=== PATIENT | female | born 1965 | race Caucasian/White ===

== ENCOUNTER 2018-04-20 08:41 | Day surgery (SDC) | payer OTHER ==
[~2018-04-20] VITALS: Ht 165.1 cm; Wt 118.9 kg
[~2018-04-20 08:41] MED LIST: LEXAPRO10 MG PO; MOBIC7.5 MG PO; PRAVACHOL40 MG PO; XIGDUO XR 2.51 EACH PO
[2018-04-20 09:05] VITALS: BP 127/77
[2018-04-20 14:20] VITALS: BP 131/71
[2018-04-20 15:42] LABS: HEMATOCRIT 41.7 % (36.0-46.0); HEMOGLOBIN 13.1 G/DL (11.9-15.5); MCH 28.1 PG (29.0-34.0); MCHC 31.4 G/DL (30.0-36.0); MCV 89.3 FL (83-99); PLATELET COUNT 235 K/uL (156-360); RBC DIS.WIDTH-CV 13.1 % (11.8-14.6); RBC DIS.WIDTH-SD 42.9 % (39-53); RED BLOOD COUNT 4.67 M/uL (3.80-5.20); WHITE BLOOD COUNT 11.8 K/uL (4.1-10.2)
[2018-04-20 16:09] LABS: CHLORIDE 102 MEQ/L (99-109); CREATININE 0.7 MG/DL (0.6-1.3); GFR ESTIMATE (CALCULATED) > 59 mL/min/; GLUCOSE 164 mg/dL (70-99); POTASSIUM 3.7 MEQ/L (3.7-5.4); SODIUM 140 MEQ/L (136-147); UREA NITROGEN (BUN) 19 mg/dL (9-23)
[2018-04-20 19:37] VITALS: BP 159/67
[2018-04-21 00:13] VITALS: BP 107/55
[2018-04-21 04:30] VITALS: BP 116/61
[2018-04-21 05:55] LABS: HEMATOCRIT 37.4 % (36.0-46.0); HEMOGLOBIN 11.8 G/DL (11.9-15.5); MCH 28.1 PG (29.0-34.0); MCHC 31.6 G/DL (30.0-36.0); PLATELET COUNT 237 K/uL (156-360); RBC DIS.WIDTH-CV 13.1 % (11.8-14.6); RBC DIS.WIDTH-SD 42.6 % (39-53); WHITE BLOOD COUNT 9.9 K/uL (4.1-10.2)
[2018-04-21 06:16] LABS: CHLORIDE 105 MEQ/L (99-109); CREATININE 0.6 MG/DL (0.6-1.3); GFR ESTIMATE (CALCULATED) > 59 mL/min/; GLUCOSE 144 mg/dL (70-99); POTASSIUM 3.9 MEQ/L (3.7-5.4); SODIUM 140 MEQ/L (136-147); UREA NITROGEN (BUN) 13 mg/dL (9-23)
[2018-04-21 06:48] VITALS: BP 123/69
== END 2018-04-21 09:41 | disposition home or self-care (01) ==
LOC: SDC 08:41 → 2SOUTH 12:20 → ENRESERV 12:54 → 2EAST 14:13 → SDC 15:02 → 2EAST 04-21 09:41
PROVIDERS: Obstetrics & Gynecology Gynecologic Oncology
DX: Z40.02 Encounter for prophylactic removal of ovary(s) (principal); Z80.41 Family history of malignant neoplasm of ovary; Z15.01 Genetic susceptibility to malignant neoplasm of breast; Z80.3 Family history of malignant neoplasm of breast; E78.5 Hyperlipidemia, unspecified; E11.9 Type 2 diabetes mellitus without complications; E66.01 Morbid (severe) obesity due to excess calories; Z68.41 Body mass index [BMI] 40.0-44.9, adult; N80.0 Endometriosis of uterus
CPT/HCPCS: 80048; 82948; 85027; 88307; 94799; G0378; J0131; J0171; J0330; J0690; J1100; J1170; J2250; J2405; J3010; J7120; Q0175